=== PATIENT | male | born 1955 | race Two or more races ===

== ENCOUNTER 2024-10-16 15:24 | Emergency (ER) | payer OTHER ==
[~2024-10-16] VITALS: Ht 167.6 cm; Wt 81.6 kg
[2024-10-16] MEDS ORDERED: ZESTRIL5 MG PO (15:57)
[2024-10-16] MEDS ORDERED: ASA81 MG PO (15:58)
[2024-10-16] MEDS ORDERED: SIMVASTATIN5 MG PO (15:58)
[2024-10-16 17:28] LABS: PH,URINE 5.5 (5.0-8.0); URINE APPEARANCE Cloudy; URINE BILIRRUBIN Negative (NEGATIVE); URINE BLOOD Moderate; URINE COLOR Dark Yellow; URINE GLUCOSE Negative (NEGATIVE); URINE KETONE Negative (NEGATIVE); URINE LEUKOCYTE Negative; URINE NITRATE Positive; URINE PROTEIN Negative (NEGATIVE)
[2024-10-16 17:31] LABS: HEMATOCRIT 43.1 % (39.0-48.0); HEMOGLOBIN 14.7 g/dL (13-16.00); MEAN CELL VOLUME 96.1 fL (80.0-100.00); MEAN CORPUSCULAR HEMOGLOBIN 32.7 pg (27.00-32.0); PLATELET COUNT 295 K/uL (150-450); RED BLOOD COUNT 4.49 M/uL (4.00-6.00)
[2024-10-16 17:56] LABS: ALBUMIN 4.1 gm/dL (3.4-5.0); BILIRUBIN TOTAL 0.69 mg/dL (0.3-1.2); CALCIUM 9.4 mg/dL (8.5-10.1); CREATININE SERUM 1.04 mg/dL (0.70-1.30); GFR 70.4; GLOBULINA 4.2 G/DL (2.4-3.5); POTASSIUM 3.99 mEq/L (3.5-5.1); TOTAL PROTEIN 8.3 gm/dL (6.4-8.2)
[2024-10-16 18:01] LABS: URINE BACTERIA 3.6 uL (0.0-1933); URINE EPITHELIAL CELLS 1.1 uL (0.0-38.8); URINE WBC 1.7 uL (0.0-23.2)
[2024-10-17] MEDS ORDERED: LEVOTHYROXINE25 MCG (09:33)
== END 2024-10-16 22:44 | disposition home or self-care (01) ==
LOC: ER 15:27
PROVIDERS: Emergency Medicine
DX: N40.1 Benign prostatic hyperplasia with lower urinary tract symptoms (principal); R33.8 Other retention of urine; I10 Essential (primary) hypertension; I11.9 Hypertensive heart disease without heart failure; N39.0 Urinary tract infection, site not specified; Z91.018 Allergy to other foods

== ENCOUNTER → 2024-10-17 | Emergency (ER) | payer OTHER ==
[~2024-10-17] VITALS: Ht 167.6 cm; Wt 81.6 kg
[~2024-10-17] MED LIST: ASA81 MG PO; LEVOTHYROXINE25 MCG; SIMVASTATIN5 MG PO; ZESTRIL5 MG PO
== END | disposition home or self-care (01) ==
LOC: ER 09:18
DX: R53.81 Other malaise (principal); T83.9XXA Unspecified complication of genitourinary prosthetic device, implant and graft, initial encounter; N40.0 Benign prostatic hyperplasia without lower urinary tract symptoms; I10 Essential (primary) hypertension; Z91.018 Allergy to other foods

== ENCOUNTER 2024-10-18 10:45 | Emergency (ER) | payer OTHER ==
[~2024-10-18] VITALS: Ht 167.6 cm; Wt 81.6 kg
[2024-10-18] MEDS ORDERED: ONDANSETRON HCL 2 MG/ML VIAL IV ONE (12:15)
[2024-10-18] MEDS ORDERED: FAMOtidine 10 MG/ML (4ML VIAL) IV PUSH ONE (12:15)
[2024-10-18] MEDS ORDERED: 0.9 % SODIUM CHLORIDE 500 ML IV ONE (12:15)
[2024-10-18] MEDS ORDERED: HYOSCYAMINE SULFATE 0.125 MG TAB.SUBL SL ONE (12:15)
[2024-10-18] MEDS ORDERED: HYOSCYAMINE SULFATE 0.125 MG TAB.SUBL ONE (12:39)
[2024-10-18] MEDS ORDERED: ONDANSETRON HCL 2 MG/ML VIAL ONE (12:39)
[2024-10-18] MEDS ORDERED: FAMOTIDINE/PF 20 MG/2 ML VIAL ONE (12:40)
[2024-10-18 13:34] LABS: HEMATOCRIT 43.3 % (39.0-48.0); HEMOGLOBIN 15.3 g/dL (13-16.00); MEAN CELL VOLUME 94.8 fL (80.0-100.00); MEAN CORPUSCULAR HEMOGLOBIN 33.4 pg (27.00-32.0); MEAN CORPUSCULAR HGB CONC 35.2 g/dl (32.0-36.0); PLATELET COUNT 263 K/uL (150-450); RED BLOOD COUNT 4.57 M/uL (4.00-6.00); RED CELL DISTRIBUTION WIDTH 13.7 % (11.5-14.5)
[2024-10-18 13:56] LABS: ALBUMIN 3.8 gm/dL (3.4-5.0); BILIRUBIN TOTAL 0.74 mg/dL (0.3-1.2); CALCIUM 8.9 mg/dL (8.5-10.1); CREATININE SERUM 1.1 mg/dL (0.70-1.30); GFR 65.99; GLOBULINA 3.6 G/DL (2.4-3.5); POTASSIUM 4.39 mEq/L (3.5-5.1); TOTAL PROTEIN 7.4 gm/dL (6.4-8.2)
== END 2024-10-18 16:16 | disposition home or self-care (01) ==
LOC: ER 10:47
PROVIDERS: General Practice
DX: K52.9 Noninfective gastroenteritis and colitis, unspecified (principal); R11.10 Vomiting, unspecified; Z20.822 Contact with and (suspected) exposure to COVID-19; Z91.018 Allergy to other foods
CPT/HCPCS: 36415; 96365; 96366; 99282; J2405; J3490; J7042